=== PATIENT | female | born 1950 | race Caucasian/White ===

== ENCOUNTER 2024-09-28 18:07 | Emergency (ER) | payer OTHER, MEDICARE, SELFPAY ==
[2024-09-28 18:18] VITALS: BP 193/73
[2024-09-28 18:19] VITALS: BP 193/73
--- NOTE | 2024-09-28 18:23 | ED.GENMED ---
History of Present Illness
General
Chief Complaint: Fall
Source: patient
Exam Limitations: dementia
Time Seen by Provider: 09/28/24 18:08
Nursing documentation reviewed up to this point in time: agreed with
History of Present Illness
History of Present Illness:
Patient is a 74-year-old female with history dementia presenting to the emergency department for evaluation following unwitnessed fall. Patient unable to contribute to history due to dementia. Did attempt contacting nursing facility although
unable to get through. Per EMS�patient had unwitnessed fall just prior to arrival while in her apartment unit. However�staff numbers right leg outside of her door at the time of the fall and were quickly at her side. There was no report of loss
of consciousness. Patient is at her baseline mental status.
Patient specifically denies any headache, neck pain, chest pain, shortness of breath. No lower extremity or upper extremity pain.
Patient takes a baby aspirin.
Review of Systems
Review of Systems
Allergies reviewed?: Yes
Unable to obtain full review of systems at this time due to: dementia
Phy Exam
Physical Exam
Physical Exam:
GENERAL: No acute distress
HEENT: Approximately 1 cm abrasion on posterior scalp, extraocular muscles intact, no signs of entrapment, poor dentition no other obvious trauma
NECK: no midline tenderness, normal range of motion, no other obvious trauma
BACK: no midline tenderness, no other obvious trauma
CHEST: no tenderness, no flail segment, no subcutaneous emphysema, no other obvious trauma
LUNGS: clear to auscultation bilaterally
CARDIOVASCULAR: regular rate and rhythm. Heart sounds normal
ABDOMEN: soft, non-tender, no masses, no other obvious trauma
PELVIS: stable, no obvious injury
EXTREMITIES: moving all extremities, no pain with internal/external rotation of bilateral hips, distal pulses intact, no other obvious trauma
NEUROLOGIC: awake, alert. No focal deficits
Course
Orders/Labs/Results
Orders:
Orders
09/28/24 18:21
CT Head W/o Iv Contrast Urgent
Comment:
Reason For Exam: unwitnessed fall
Cervical Spine wo Contrast CT [CT Cervical Spine W/o Iv Contr] Urgent
Comment:
Reason For Exam: unwitnessed fall
Tetanus/Diphth/Acelpertussis [Adacel] 0.5 ml IM .ONCE ONE
Vital Signs
Initial and Last Documented VS:
Initial Vital Signs
Pulse Ox
98
09/28/24 18:17
Last Documented Vital Signs
Temp Pulse Resp BP Pulse Ox
97.4 F 97 20 142/64 98
09/28/24 18:19 09/28/24 18:19 09/28/24 18:19 09/28/24 19:00 09/28/24 19:00
MDM/Problems Addressed
Differential Diagnosis Includes:
Not limited to: Laceration, concussion, intraparenchymal hemorrhage, cervical spine fracture, etc.
MDM/Problems Addressed:
74-year-old female with history dementia presenting from facility after unwitnessed fall with posterior head strike. Per EMS that patient at baseline mental status. No loss of consciousness. No current complaints. Specifically denies headache,
neck pain, abdominal pain, chest pain, or shortness of breath. Patient arrives mildly hypertensive, otherwise with stable vital signs. On exam�patient is alert. Very mild 1 cm abrasion to posterior scalp overlying mild contusion, no gaping
laceration. No C-spine or midline spinal tenderness. Cardio/pulmonary assessment unremarkable. Abdomen soft and nontender. No evidence of extremity injuries. Patient has full range of motion in bilateral upper and lower extremities without
pain. Patient on baby aspirin, otherwise no thinners. Will check CT head and cervical spine. Will update tetanus.
Update: Wound on posterior scalp thoroughly irrigated. Small amount of skin glue placed to reinforce. Not actively bleeding. Patient's sister did arrive and is at bedside currently. She reports that facility called and said patient had a
suspected slip and fall with no loss of conscious. CT reports without acute findings. Patient otherwise stable for discharge back to facility. Patient sister states she will drive her. Patient ambulating out of emergency department with some
assistance.
Chronic conditions affecting care:
Dementia
Acute Exacerbation and/or Progression of Chronic Illness:
N/A
*Radiology
Radiology exam reviewed: radiology read reviewed (No acute abnormalities of head CT or C-spine CT)
*Pulse Oximetry
Patient hypoxic: no
*EKG
Interpreted by ED Provider?: NA
*Team Assembler Interpretation
Rate: Team Assembler- N/A
*Critical Care Note
Total Time (30-74mins, 75-104mins- exclusive of procedures): Not Applicable
Update Note
Update Note:
Update 7:26 p.m.: CT report reviewed. No acute abnormalities of head or C-spine. Patient remains well-appearing and in no distress. Vital stable. Patient stable for discharge. Patients sister at bedside who will transfer patient back to facility.
ED Attending Note
-
Portions of this chart may have been created with voice recognition software.� Occasional wrong word or��sound alike� substitutions may have occurred due to the inherent limitations of voice recognition software.
Discharge Plan
Departure
Patient Disposition: Home (Routine Discharge)
Date of Disposition: 09/28/24
Time of Disposition: 19:39
Patient with high blood pressure during this ER visit?: Yes
Condition: Good
Covid-19: Not Applicable
Discharge Problem:
Fall, Abrasion of scalp
Instructions: Head Injury in Adults (DC), Contusion (DC), Preventing falls in adults, Skin Abrasions (DC)
Referrals:
Echo Butler MD [Family Provider] - Follow up in 5-7 days
Activity Restrictions/Additional Instructions:
Return to the emergency department with any severe headache, neck pain, change in mental status, changes in vision, inability to ambulate, intractable vomiting, worsening current symptoms, or any other concerns
-As discussed�your CT imaging showed no acute abnormalities of your head or neck today.
- You do have a mild abrasion to your scalp. A small amount of skin glue was applied. You should keep this area clean and dry. Monitor closely for signs of infection including fever, significant redness or swelling around wound, red streaking
wound, pus draining from wound, or any other concerns. Please return to the emergency department or see your primary care with any signs of infection
Monitor your symptoms closely and return to the emergency department with any acute worsening/new symptoms or any other concerns
Interventions
Interventions:
*Risk Screen - Suicide Last Done: 09/28/24 20:01
*General Assessment Last Done: 09/28/24 18:28
*Neglect/Abuse Screening Last Done: 09/28/24 18:28
ED- Fall Risk Assessment Last Done: 09/28/24 20:01
*ED COVID-19 Vaccine History Last Done: 09/28/24 18:56
*Nursing Disposition Last Done: 09/28/24 20:01
ED-Musculoskeletal Assessment Last Done: 09/28/24 18:28
ED- Neurological Assessment Last Done: 09/28/24 18:28
ED-Skin Assessment Last Done: 09/28/24 18:28
Discharge Date and Time
Discharge Date/Time: 09/28/24 19:50
Print Language: FRENCH
[2024-09-28 18:25] VITALS: BMI 24.6
[2024-09-28 19:00] VITALS: BP 142/64
== END 2024-09-28 19:50 | disposition home or self-care (01) ==
LOC: EMR 18:07
PROVIDERS: EMERGENCY PHYSICIAN Emergency Medicine; FAMILY PHYSICIAN Student in an Organized Health Care Education/Training Program
DX: S00.01XA Abrasion of scalp, initial encounter (principal); S00.03XA Contusion of scalp, initial encounter; W19.XXXA Unspecified fall, initial encounter; Y92.122 Bedroom in nursing home as the place of occurrence of the external cause; F03.90 Unspecified dementia, unspecified severity, without behavioral disturbance, psychotic disturbance, mood disturbance, and anxiety; Z79.82 Long term (current) use of aspirin
CPT/HCPCS: 99284; 70450; 72125

== ENCOUNTER 2025-09-05 13:07 | Emergency (ER) | payer OTHER, MEDICARE, SELFPAY ==
[2025-09-05] VITALS (7 sets, daily range): BP systolic 102–137; BP diastolic 54–96
[2025-09-05 14:23] LABS: Hematocrit 38.6 % (37.0-47.0); Hemoglobin 12.9 g/dL (12.0-16.0); Mean Corp Hgb Conc. 33.4 g/dL (33.0-37.0); Mean Corpuscular Volume 83.4 fL (81.0-99.0); Nucleated Red Blood Cells % 0 %; Platelet Count 314 10^3/uL (130-400); Red Cell Dist. Width 13.8 % (11.5-14.5)
[2025-09-05 14:42] LABS: ALT (SGPT) 34 U/L (0-35); AST (SGOT) 67 U/L (14-36); Albumin 3.8 g/dl (3.5-5.0); Alkaline Phosphatase 84 U/L (38-126); Blood Urea Nitrogen 20 mg/dl (7-17); Calcium 8.9 mg/dl (8.4-10.2); Carbon Dioxide 24 mmol/L (22-30); Chloride 104 mmol/L (98-107); Glucose 117 mg/dl (70-99); Potassium 3.7 mmol/L (3.5-5.1); Sodium 136 mmol/L (135-145); Total Protein 7.3 g/dl (6.3-8.2); eGFR > 60.00
--- NOTE | 2025-09-05 15:13 | ED.GENMED ---
History of Present Illness
<LEWIS Salvador - Last Filed: 09/05/25 20:12>
General
Chief Complaint: Fall
Source: senior living
Exam Limitations: dementia
Time Seen by Provider: 09/05/25 13:17
History of Present Illness
History of Present Illness:
75 yr old female sent by [facility].
Staff noticed pt was weaker than normal and more confused today. STaff reports pt normally walks with a walker and today fell twice.
They assited her up.
Pt presents awake alert confused unable to give history or answer questions.
Phy Exam
<LEWIS Salvador - Last Filed: 09/05/25 20:12>
General Physical Exam
General Presentation: no apparent distress
General age: appears stated age
General Skin: warm and dry
General Habitus: normal
General Mental: alert
General Hydration: dry mucous membranes and other (Dried blood in mouth)
Cardiovascular Exam
Cardiovascular Exam: regular rate/rhythm, no murmur and normal peripheral pulses
Pulmonary Exam
Pulmonary Exam: lungs clear and no respiratory distress
Neurological Exam
Neurological Exam: other (confused does not answer questions correctly )
Musculoskeletal Exam
Musculoskeletal Exam: full ROM
Skin Exam
Skin Exam: normal color and warm/dry
Psychiatric Exam
Psychiatric Exam: normal mood/affect
Course
<LEWIS Salvador - Last Filed: 09/05/25 20:12>
Orders/Labs/Results
Orders:
Orders
09/05/25 13:42
CT Cervical Spine W/o Iv Contr Urgent
Comment:
Reason For Exam: trauma
CT Head W/o Iv Contrast Urgent
Comment:
Reason For Exam: trauma
IV Insert/Care/Rem.- Treatment PRN
Straight cath- Treatment ONCE
09/05/25 14:16
Complete Blood Count/With Diff Urgent
Comprehensive Metabolic Panel Urgent
09/05/25 15:38
IV Insert/Care/Rem.- Treatment PRN
0.9% Sodium Chloride 1000 ml [Nss] 1,000 ml IV BOLUS
09/05/25 15:52
Chest [CR Chest - 2 Views ] Urgent
Comment:
Reason For Exam: SOB
09/05/25 15:53
COVID-19 Antigen Urgent
Source: Nasal Swab
Urinalysis Reflex To Culture Urgent
Date Specimen was Collected: 09/05/25
Time Specimen was Collected: 15:39
Urine Microscopic Reflex Cult Urgent
Influenza A+B Rapid Molecular Urgent
OTIS Source: Nasal Swab
Specimen Description:
Urine Culture Urgent
OTIS Source: U
Specimen Description:
Date Specimen was Collected: 09/05/25
Time Specimen was Collected: 15:39
Abnormal Lab Results
09/05/25 09/05/25
14:16 15:53
Absolute Monos (auto) 0.9 H 10^3/uL
(0.1-0.6)
Monocytes % 9.7 H %
(1.7-9.3)
BUN 20 H mg/dl
(7-17)
Glucose 117 H mg/dl
(70-99)
AST 67 H U/L
(14-36)
Urine Ketones 2+ A
(Negative)
Urine Bacteria (Reflex) Moderate A
(Negative)
Urine Albumin (Reflex) 2+ A
(Neg - Trace)
09/05/25 14:16
09/05/25 14:16
Vital Signs
Initial and Last Documented VS:
Initial Vital Signs
Temp Pulse Resp BP Pulse Ox
98.4 F 69 16 131/66 97
09/05/25 13:21 09/05/25 13:21 09/05/25 13:21 09/05/25 13:21 09/05/25 13:21
Last Documented Vital Signs
Temp Pulse Resp BP Pulse Ox
98.4 F 57 16 137/54 96
09/05/25 13:21 09/05/25 20:15 09/05/25 18:00 09/05/25 20:15 09/05/25 20:30
Parts Consultant consulted with Physician
Parts Consultant consulted with physician?: Yes
Name of Physician Consulted: Eduardo
<Christiane Clark, DO - Last Filed: 09/06/25 08:15>
Orders/Labs/Results
Orders:
Orders
09/05/25 13:42
CT Cervical Spine W/o Iv Contr Urgent
Comment:
Reason For Exam: trauma
CT Head W/o Iv Contrast Urgent
Comment:
Reason For Exam: trauma
IV Insert/Care/Rem.- Treatment PRN
Straight cath- Treatment ONCE
09/05/25 14:16
Complete Blood Count/With Diff Urgent
Comprehensive Metabolic Panel Urgent
09/05/25 15:38
IV Insert/Care/Rem.- Treatment PRN
0.9% Sodium Chloride 1000 ml [Nss] 1,000 ml IV BOLUS
09/05/25 15:52
Chest [CR Chest - 2 Views ] Urgent
Comment:
Reason For Exam: SOB
09/05/25 15:53
COVID-19 Antigen Urgent
Source: Nasal Swab
Urinalysis Reflex To Culture Urgent
Date Specimen was Collected: 09/05/25
Time Specimen was Collected: 15:39
Urine Microscopic Reflex Cult Urgent
Influenza A+B Rapid Molecular Urgent
OTIS Source: Nasal Swab
Specimen Description:
Urine Culture Urgent
OTIS Source: U
Specimen Description:
Date Specimen was Collected: 09/05/25
Time Specimen was Collected: 15:39
Abnormal Lab Results
09/05/25 09/05/25
14:16 15:53
Absolute Monos (auto) 0.9 H 10^3/uL
(0.1-0.6)
Monocytes % 9.7 H %
(1.7-9.3)
BUN 20 H mg/dl
(7-17)
Glucose 117 H mg/dl
(70-99)
AST 67 H U/L
(14-36)
Urine Ketones 2+ A
(Negative)
Urine Bacteria (Reflex) Moderate A
(Negative)
Urine Albumin (Reflex) 2+ A
(Neg - Trace)
09/05/25 14:16
09/05/25 14:16
Vital Signs
Initial and Last Documented VS:
Initial Vital Signs
Temp Pulse Resp BP Pulse Ox
98.4 F 69 16 131/66 97
09/05/25 13:21 09/05/25 13:21 09/05/25 13:21 09/05/25 13:21 09/05/25 13:21
Last Documented Vital Signs
Temp Pulse Resp BP Pulse Ox
98.4 F 57 16 137/54 96
09/05/25 13:21 09/05/25 20:15 09/05/25 18:00 09/05/25 20:15 09/05/25 20:30
<LEWIS Salvador - Last Filed: 09/05/25 20:12>
MDM/Problems Addressed
Differential Diagnosis Includes:
not limited to: dehydration, infection, UTI head trauma
MDM/Problems Addressed:
As documented patient is a 75 old female who was sent from nursing Facility for weakness and falls. Patient has a history of dementia unable to give history. She is dry on exam and was given fluids here in the ER. Patient presents afebrile with a
normal white count stable hemoglobin BUN elevated at 20 within normal creatinine. Urinalysis negative for infection. Patient had a head CT and cervical CT done which was negative for acute findings. Chest x-ray is also negative.
Patient is negative for COVID-negative for flu.
Patient does not require any reason for admission however will hydrate here in the ER.
Patient was hydrated in the ER with normal saline and also drank fluids.
Stable for discharge home. Likely mild dehydration as cause of patient's symptoms.
<LEWIS Salvador - Last Filed: 09/05/25 20:12>
*Radiology
Radiology exam reviewed: radiology read reviewed
*Pulse Oximetry
SaO2: 95
Oxygen Mode of Delivery: Room air
Patient hypoxic: no
*Critical Care Note
Total Time (30-74mins, 75-104mins- exclusive of procedures): Not Applicable
ED Attending Note
<LEWIS Salvador - Last Filed: 09/05/25 20:12>
-
Portions of this chart may have been created with voice recognition software.� Occasional wrong word or��sound alike� substitutions may have occurred due to the inherent limitations of voice recognition software.
<Christiane Clark DO - Last Filed: 09/06/25 08:15>
ED Attending Note
Patient seen and examined by attending physician: Yes
I performed the substantive portion of visit, reviewed & personally made and approve the management plan that is documented in note by myself or RACHEL.: Yes
I performed a history and physical exam of patient and discussed management with resident, I reviewed resident's note and agree with documented findings and plan of care.: Yes
ED Attending Note:
75-year-old female with history of dementia presenting to the emergency department for change in mental status and unwitnessed fall. Patient arrives from memory care unit where she was noted to have been found lying by the side of her bed. Sister
at bedside shortly after arrival, notes that she last saw patient 3 days ago. She looks very dry, however was more conversive and more alert. Now is persistently falling asleep. Patient is a very limited historian given her underlying dementia
and memory issues. Vital signs on arrival are normal.
On exam, patient with very dry mucous membranes. Unremarkable cardiac and pulmonary exam. Patient is awake, however does appear lethargic, falling asleep on examination. She presently denies any pain. No physical signs of trauma. She is moving
all extremities equally. Concern for metabolic source of patient's symptoms and acute dehydration. Given unwitnessed fall, will obtain CT brain imaging. Plan for laboratory analysis, urinalysis, chest x-ray, COVID/flu.
Discharge Plan
Departure
Patient Disposition: [facility]SNF
Date of Disposition: 09/05/25
Time of Disposition: 20:08
Patient with high blood pressure during this ER visit?: Yes
Condition: Fair
Covid-19: Not Applicable
Discharge Problem:
Fall
Prescriptions:
No Action
aspirin 81 mg Tablet,Delayed Release (Dr/Ec)
81 mg PO DAILY
acetaminophen [Tylenol Extended Release] 650 mg Tablet Extended Release
1,300 mg PO Q8HPRN PRN (Reason: mild pain)
simvastatin 20 mg Tablet
20 mg PO HS
buspirone [BuSpar] 30 mg Tablet
30 mg PO BID
sertraline 50 mg Tablet
50 mg PO DAILY
Referrals:
Echo Butler MD [Family Provider, Internal Medicine]
Activity Restrictions/Additional Instructions:
Patient was found to be mildly dehydrated here and given fluids in the ER. She also drank fluids. She did not have a fever and had normal white count stable hemoglobin. Her urine was negative for infection, her chest x-ray was negative for
pneumonia her CT head was negative for acute findings other than hematoma.
Patient should be evaluated by the family doctor in the next several days return if any worsening of symptoms.
Interventions
Interventions:
*General Assessment Last Done: 09/05/25 13:21
*Neglect/Abuse Screening Last Done: 09/05/25 13:21
*ED COVID-19 Vaccine History Last Done: 09/05/25 13:31
*ED Influenza Vaccine History Last Done: 09/05/25 13:31
[facility] Fall Risk Assessment Tool Last Done: 09/05/25 13:30
*Risk Screen - Suicide (C-SSRS) Last Done: 09/05/25 13:31
*Nursing Disposition Last Done: 09/05/25 20:25
ED-Musculoskeletal Assessment Last Done: 09/05/25 13:33
ED- Neurological Assessment Last Done: 09/05/25 13:32
ED-Skin Assessment Last Done: 09/05/25 13:33
Discharge Date and Time
Discharge Date/Time: 09/05/25 20:59
Print Language: LATVIAN
[2025-09-05 16:02] LABS: Urine Character Clear (Clear)
[2025-09-05 16:10] LABS: Urine Squamous Cell 0-2 /LPF (Few)
[2025-09-05 16:11] LABS: Urine Red Blood Cell 0-2 /HPF (0-2); Urine White Cell 0-2 /HPF (0-5)
[2025-09-05 16:32] LABS: COVID-19 Antigen Negative (Negative)
[2025-09-05] MEDS: NSS 1000 IV (16:44)
--- NOTE | 2025-09-05 18:08 | EDRN ---
Attempting to straighten pt's arm to complete bag of fluids. Pt keeps bending it which stops fluids. Pt was administered water but would not drink it. Sister said she likes shabbir jared so pt brought shabbir jared and is drinking it now.
--- NOTE | 2025-09-05 19:17 | EDRN ---
called to organize discharge transport to [facility] in [place] [phone].
--- NOTE | 2025-09-05 19:26 | EDRN ---
Report called to Madhavi Albert MT optical instrument assembly supervisor at [facility].
== END 2025-09-05 20:59 ==
LOC: EMR 13:07
PROVIDERS: Nurse Practitioner; EMERGENCY PHYSICIAN Student in an Organized Health Care Education/Training Program; FAMILY PHYSICIAN Student in an Organized Health Care Education/Training Program
DX: Z04.3 Encounter for examination and observation following other accident (principal); W19.XXXA Unspecified fall, initial encounter; E86.0 Dehydration; R53.1 Weakness; F03.90 Unspecified dementia, unspecified severity, without behavioral disturbance, psychotic disturbance, mood disturbance, and anxiety; Z11.52 Encounter for screening for COVID-19
CPT/HCPCS: 96360; 96361; 99284; 70450; 71046; 72125; 80053; 81003; 81015; 85025; 87086; 87502; 87811